=== PATIENT | female | born 1950 | race African-American/Black ===

== ENCOUNTER 2018-07-10 16:39 | Emergency (ER) | payer OTHER ==
[~2018-07-10] VITALS: Ht 167.6 cm; Wt 74.8 kg
[~2018-07-10 16:39] MED LIST: LOPRESSOR25 PO; PREDNISONE 5 MG5 M1 PO; ZANTAC 150MG T150 MG
[2018-07-10] MEDS ORDERED: ELIQUIS2.5 MG PO (17:09)
[2018-07-10] MEDS ORDERED: FLONASE 0.05%50 MCG NASAL (17:46)
[2018-07-10 17:58] VITALS: BP 195/94
== END 2018-07-10 17:58 | disposition home or self-care (01) ==
LOC: ER 16:39
DX: J32.1 Chronic frontal sinusitis (principal); J32.2 Chronic ethmoidal sinusitis; K21.9 Gastro-esophageal reflux disease without esophagitis; M19.90 Unspecified osteoarthritis, unspecified site; Z91.041 Radiographic dye allergy status

== ENCOUNTER 2018-08-18 19:56 | Emergency (ER) | payer OTHER ==
[~2018-08-18] VITALS: Ht 167.6 cm; Wt 70.8 kg
[~2018-08-18 19:56] MED LIST changes: +ELIQUIS2.5 MG PO; +FLONASE 0.05%50 MCG NASAL
[2018-08-18 21:05] LABS: ABSOLUTE NEUTROPHILS 3.7 thou/uL (1.4-8.2); BASOPHILS 1.3 % (0.0-2.0); EOSINOPHILS 1.8 % (0.0-3.0); HEMATOCRIT 34.1 % (37.0-47.0); HEMOGLOBIN 11.3 gm/dL (12.0-15.0); LYMPHOCYTES 32.9 % (24.0-44.0); MCH 28.8 pg (26.0-34.0); MCV 87.1 fL (80.0-100.0); MONOCYTES 4.4 % (1.0-8.0); PLATELET COUNT 275 thou/uL (150-400); POLYS 59.6 % (36.0-66.0); RBC 3.92 mil/uL (4.20-5.00); RDW 14.2 % (10.5-14.5); WBC 6.1 thou/uL (4.0-11.0)
[2018-08-18 21:20] LABS: ANION GAP 9 mmol/L (7-16); BUN 14 mg/dL (7-18); CALCIUM 9.4 mg/dL (8.5-10.1); CHLORIDE 100 mmol/L (98-107); CO2 27 mmol/L (21-32); CREATININE 1.2 mg/dL (0.6-1.0); GLUCOSE 108 mg/dL (74-106); POTASSIUM 3.6 mmol/L (3.5-5.1); SODIUM 136 mmol/L (136-145)
[2018-08-18 21:28] LABS: ALBUMIN 3.5 g/dL (3.4-5.0); SGOT 18 U/L (15-37); SGPT 15 U/L (30-65); TOTAL BILIRUBIN 0.2 mg/dL (<0.1-1.0); TOTAL PROTEIN 8.4 g/dL (6.4-8.2); TROPONIN-I <0.06 ng/mL (<0.06)
[2018-08-18] MEDS ORDERED: NORVASC5 MG PO (21:47)
[2018-08-18 22:19] VITALS: BP 142/65
--- NOTE | 2018-08-19 10:06 | EKG ---
[place] [address] [facility] [employer] [address] ELECTROCARDIOGRAM REPORT Name: EVINALEAH Room #: DEP PHILLIP Piña#: [id number] Admission: 08/18/18 Attend Phys: Discharge: 08/18/18 Date of : 48 Report #: [id number] THIS REPORT FOR: //name// [facility] ED Test Date: 2018-08-18 Test Time: 20:06:02 Pat Name: ALEAH CLEARY Department: Room: Gender: F Director Of Bands: : 1950 Requested By: Jeanna Gar Order Number: [id number] MD: John Michael Measurements Intervals [place] Rate: 72 P: 72 UT: 220 QRS: 1 QRSD: 82 T: 37 QT: 410 QTc: 449 Interpretive Statements Sinus rhythm Prolonged UT interval Probable left atrial enlargement No previous ECG available for comparison Electronically Signed On 08-19-2018 10:06:04 [employer] by John Michael [email or web address] <ELECTRONICALLY SIGNED> By: John Michael MD 08/19/18 1006 05 05 John Michael MD /[email or web address]
== END 2018-08-18 22:29 | disposition home or self-care (01) ==
LOC: ER 19:56
PROVIDERS: Student in an Organized Health Care Education/Training Program
DX: R51 Headache (principal); I10 Essential (primary) hypertension; J44.9 Chronic obstructive pulmonary disease, unspecified; K21.9 Gastro-esophageal reflux disease without esophagitis; M19.90 Unspecified osteoarthritis, unspecified site; Z91.041 Radiographic dye allergy status